=== PATIENT | female | born 1970 | race Caucasian/White ===

== ENCOUNTER 2021-01-04 08:10 | Outpatient (CLI) | payer OTHER | END 2021-01-04 08:16 | disposition home or self-care (01) | LOC: SONOGRAMA 08:10 | PROVIDERS: ATTEND Pathology Anatomic Pathology & Clinical Pathology | DX: E04.1 Nontoxic single thyroid nodule (principal) ==

== ENCOUNTER 2025-04-09 08:30 | Inpatient (IN) | payer OTHER ==
[~2025-04-09] VITALS: Ht 157.5 cm; Wt 93.0 kg
[2025-04-09] MEDS ORDERED: COZAAR100 MG PO (10:07)
[2025-04-09] MEDS ORDERED: TOPROL XL25 M1 (10:07)
[2025-04-09] MEDS ORDERED: FARXIGA10 MG PO (10:07)
[2025-04-09 10:22] VITALS: BP 110/75
[2025-04-09 10:23] LABS: URINE APPEARANCE Clear; URINE BILIRRUBIN Negative (NEGATIVE); URINE COLOR Yellow; URINE KETONE Negative (NEGATIVE); URINE LEUKOCYTE Negative; URINE NITRATE Negative; URINE PROTEIN Negative (NEGATIVE); URINE UROBILINOGEN 0.2 E.U./dl
[2025-04-09 10:24] LABS: URINE EPITHELIAL CELLS 19.9 uL (0.0-38.8); URINE RBC 10.4 uL (0.0-20.8)
[2025-04-09 10:28] LABS: URINE BLOOD TRACES; URINE GLUCOSE >=1000 MG/DL (NEGATIVE)
[2025-04-09 10:39] LABS: BASO % 0.7 % (0.1-1.2); EOS # 0.18 (0.04-0.54); HEMATOCRIT 46.8 % (34.1-44.9); HEMOGLOBIN 15.4 g/dL (11.2-15.7); LYMPH # 2.64 (1.18-3.74); LYMPH % 29.2 % (19.3-53.1); MEAN CORPUSCULAR HEMOGLOBIN 27.7 pg (25.6-32.2); MONO # 0.56 (0.24-0.82); MONO % 6.2 % (4.7-12.5); NEUT # 5.57 (1.56-6.13); NEUT % 61.6 % (34.0-71.1); PLATELET COUNT 242 K/uL (163-369); RED BLOOD COUNT 5.55 M/uL (3.93-5.22); RED CELL DISTRIBUTION WIDTH 13.6 % (11.6-14.4)
[2025-04-09 11:09] LABS: PARTIAL THROMBOPLASTIN TIME 27.6 SECONDS (22.0-34.0); PROTHROMBIN TIME 10.9 SECONDS (9.0-11.5)
[2025-04-09 12:05] LABS: ALBUMIN 3.9 gm/dL (3.4-5.0); BILIRUBIN TOTAL 0.46 mg/dL (0.3-1.2); CALCIUM 9.2 mg/dL (8.5-10.1); CREATININE SERUM 0.69 mg/dL (0.55-1.02); GFR 88.01; GLOBULINA 3.2 G/DL (2.4-3.5); POTASSIUM 4.46 mEq/L (3.5-5.1); TOTAL PROTEIN 7.1 gm/dL (6.4-8.2)
[2025-04-14] MEDS ORDERED: DEXAMETHASONE SODIUM PHOSPHATE 4 MG/ML VIAL ONE (07:05)
[2025-04-14] MEDS ORDERED: CEFAZOLIN SODIUM 1,000 MG VIAL ONE (07:05)
[2025-04-14] MEDS ORDERED: MORPHINE SULFATE 4 MG/ML VIAL IV ONE (09:25)
[2025-04-14] MEDS ORDERED: DEXTROSE 50 % IN WATER 0.5 G/ML VIAL IV PRN (09:45)
[2025-04-14] MEDS ORDERED: ONDANSETRON HCL 2 MG/ML VIAL IV PRN (09:45)
[2025-04-14] MEDS ORDERED: ENALAPRILAT DIHYDRATE 1.25 MG/ML VIAL IV PRN (09:45)
[2025-04-14] MEDS ORDERED: INSULIN LISPRO 1,000 UNIT/10 ML UNITS SUBCUTANEO PRN (09:45)
[2025-04-14] MEDS ORDERED: METOPROLOL TARTRATE 25 MG TABLET PO SCH (12:00)
[2025-04-14 13:14] VITALS: BP 132/79; O2SAT 94
[2025-04-14] MEDS ORDERED: MAG HYDROX/ALUMINUM HYD/SIMETH 30 ML BLIST.PACK PO ONE ×2 (15:13→22:48)
[2025-04-14 16:42] VITALS: BP 123/77; O2SAT 95
[2025-04-14] MEDS ORDERED: CYCLOBENZAPRINE HCL 5 MG TABLET PO SCH (17:00)
[2025-04-14] MEDS ORDERED: TRAMADOL HCL 50 MG TABLET PO SCH (17:00)
[2025-04-14] MEDS ORDERED: DIPHENHYDRAMINE HCL 150 MG,LIDOCAINE HCL 60 ML,MAG HYDROX/ALUMINUM HYD/SIMETH 60 ML PO SCH (17:00)
[2025-04-14] MEDS ORDERED: ACETAMINOPHEN 500 MG GEL..CAP PO SCH (17:00)
[2025-04-14] MEDS ORDERED: PANTOPRAZOLE SODIUM 40 MG/VIAL VIAL IV PUSH SCH (21:00)
[2025-04-15] VITALS: BP 101/61; O2SAT 94
[2025-04-15 08:00] VITALS: BP 126/67; O2SAT 95
[2025-04-15] MEDS ORDERED: LOSARTAN POTASSIUM 100 MG TABLET PO SCH (09:00)
== END 2025-04-15 14:56 | disposition home or self-care (01) | DRG 627 ==
LOC: O/R 04-14 05:17 → SURH 04-14 08:30 → SURG 04-14 12:32
PROVIDERS: ADMIT Surgery; ATTEND Surgery
PROC: 0GTH0ZZ Resection of Right Thyroid Gland Lobe, Open Approach (ICD-10-PCS; principal; 2025-04-14 11:30)
DX: E04.2 Nontoxic multinodular goiter (principal); C73 Malignant neoplasm of thyroid gland